=== PATIENT | male | born 1945 | race Caucasian/White ===

== ENCOUNTER 2017-01-08 15:13 | Emergency (ER) | payer OTHER, MEDICARE ==
[2017-01-08 17:48] LABS: BASOPHIL 0.1 % (0-2); EOSINOPHIL 0 % (0-7); HGB 13.8 g/dl (13.2-18.0); MCH 33.5 pg (25.0-31.0); MCHC 33.7 g/dL (32.0-36.0); MCV 99.5 fL (78.0-100.0); MONOCYTE 6.7 % (0-12); MPV 10.5 fL (6.0-9.5); NEUTROPHIL 81.2 % (41-80); PLT 170 K/uL (150-400); RBC 4.12 M/uL (4.70-6.00); RDW 13.6 % (11.5-14.0); WBC 7.3 K/uL (4.0-10.5)
[2017-01-08 18:00] LABS: LACTIC ACID 2.3 mmol/L (0.5-2.2)
[2017-01-08 18:02] LABS: ALBUMIN 3.7 g/dL (3.4-4.8); BILIRUBIN - TOTAL 0.6 mg/dL (0.1-1.0); CREATININE 1.5 mg/dL (0.7-1.2); TOTAL PROTEIN 6.7 g/dL (6.4-8.3)
[2017-01-08 23:01] LABS: BILIRUBIN 1+ mg/dL (NEGATIVE); BLOOD NEGATIVE Ery/uL (NEGATIVE); CLARITY HAZY (CLEAR); COLOR AMBER (YELLOW); GLUCOSE (U) NORMAL (NORMAL); KETONE (U) NEGATIVE (NEGATIVE); LEUKOCYTES NEGATIVE Leu/uL (NEGATIVE); NITRITE NEGATIVE (NEGATIVE); PROTEIN 1+ mg/dL (NEGATIVE); SPECIFIC GRAVITY >=1.030 (1.001-1.030); pH 5.5 (5.0-9.0)
[2017-01-08 23:05] LABS: BACTERIA TRACE; MUCOUS LARGE; SQUAMOUS EPITHELIAL CELLS RARE
== END 2017-01-08 23:29 | disposition home or self-care (01) ==
LOC: FER 15:13
PROVIDERS: Emergency Medicine; Internal Medicine
DX: K52.9 Noninfective gastroenteritis and colitis, unspecified (principal); E86.0 Dehydration; I95.1 Orthostatic hypotension; I10 Essential (primary) hypertension; I25.810 Atherosclerosis of coronary artery bypass graft(s) without angina pectoris; M19.90 Unspecified osteoarthritis, unspecified site; Z79.899 Other long term (current) drug therapy; Z79.82 Long term (current) use of aspirin; Z95.1 Presence of aortocoronary bypass graft; Z95.5 Presence of coronary angioplasty implant and graft
CPT/HCPCS: 36415; 74022; 80053; 81001; 82150; 83605; 83690; 85025; 87040